=== PATIENT | female | born 1980 | race Caucasian/White ===

== ENCOUNTER 2018-01-05 10:46 | Emergency (ER) | payer BC ==
[2018-01-05] MEDS ORDERED: oxyCODONE/Acetamin 5/325 MG* TAB PO ONE (11:42)
[2018-01-05] MEDS ORDERED: Cyclobenzaprine TAB* 10 MG PO ONE (11:42)
[2018-01-05 12:03] LABS: Urine Appearance Clear; Urine Blood Negative (Negative); Urine Color Yellow; Urine Ketones Trace (Negative); Urine Protein 1+(30 mg/dL) (Negative); Urine Red Blood Cell Absent (Absent); Urine Specific Gravity 1.026 (1.010-1.030); Urine Urobilinogen Negative (Negative); Urine White Blood Cell Absent (Absent)
--- NOTE | 2018-01-05 12:28 | RAD ---
Indication: Back pain. CT of the lumbar spine was obtained in the axial plane. Sagittal and coronal reconstructed images were obtained. The vertebral bodies appear normal in height. No compression fracture is noted. There is disc space narrowing at L5-S1. Broad-based protrusion flattens the thecal sac. Facet arthropathy is noted. No definite nerve root impingement is noted. At L4-L5 there is degenerative disc disease with broad-based protrusion flattening the thecal sac. No central or foraminal stenosis is noted. At L3-L4, L2-L3 and L1-L2 no disc protrusion is identified. There is no fracture of the lumbar spine. IMPRESSION: At L4-L5 there is small to moderate broad-based protrusion flattening the thecal sac. No central or foraminal stenosis is noted. At L5-S1 degenerative disc disease with moderate size broad-based protrusion flattens the thecal sac. Facet arthropathy is noted. No central or foraminal stenosis is noted.
--- NOTE | 2018-01-05 13:01 | ED ---
Back Pain - HPI Summary HPI Summary: 37-year-old female presents with back pain for the past week. She denies any injury. She states she had back pain similar location many many years ago. She denies any loss of bowel or bladder. No saddle anesthesia. She denies any numbness or tingling to the legs. She denies any weakness. pain started on left side of back and radiates down left leg. She state has been developing muscle spasms that wrap around her abdomen. She is taking ibuprofen without relief. She has been seeing her chiropractor. No pain with urination. No fevers. patient was on neurotonin in the past which helped with the pain. - History of Current Complaint Chief Complaint: EDBackInjuryPain Stated Complaint: BACK PAIN Time Seen by Provider: 01/05/18 11:29 Hx Last Menstrual Period: 3 wks ago Pain Intensity: 7 - Allergies/Home Medications Allergies/Adverse Reactions: Allergies Allergy/AdvReac Type Severity Reaction Status Date / Time No Known Allergies Allergy Verified 07/08/13 17:38 Home Medications: Home Medications Ibuprofen TAB* [Motrin TAB* 600 MG] 600 mg PO Q8H PRN 01/05/18 [History Confirmed 01/05/18] Metoprolol Succinate XL TAB* [Toprol XL TAB*] 100 mg PO DAILY 01/05/18 [History Confirmed 01/05/18] Olmesartan Medoxomil [Benicar] 20 mg PO DAILY 01/05/18 [History Confirmed ] Sertraline* [Zoloft*] 200 mg PO DAILY 01/05/18 [History Confirmed 01/05/18] Valsartan TAB* [Diovan TAB*] 80 mg PO DAILY 01/05/18 [History Confirmed 01/05/18 ] PMH/Surg Hx/FS Hx/Imm Hx Endocrine/Hematology History: Denies: Hx Anticoagulant Therapy Cardiovascular History: Reports: Hx Hypertension - Surgical History Surgery Procedure, Year, and Place: gallbladder removed 2003. c-sections 2008 & 2010 - Immunization History Immunizations Up to Date: Yes Infectious Disease History: No Infectious Disease History: Denies: Traveled Outside the [place] in Last 30 Days - Family History Known Family History: Positive: Hypertension - Social History Alcohol Use: Occasionally Substance Use Type: Reports: None Smoking Status (MU): Never Smoked Tobacco Review of Systems Negative: Fever Negative: Chest Pain Negative: Shortness Of Breath Positive: Myalgia - back pain, left leg pain All Other Systems Reviewed And Are Negative: Yes Physical Exam Triage Information Reviewed: Yes Vital Signs On Initial Exam: Initial Vitals Temp Pulse Resp BP Pulse Ox 97.8 F 90 18 139/87 99 01/05/18 11:13 01/05/18 11:13 01/05/18 11:13 01/05/18 11:13 01/05/18 11:13 Vital Signs Reviewed: Yes Appearance: Positive: Well-Appearing Skin: Positive: Warm, Dry Head/Face: Positive: Normal Head/Face Inspection Eyes: Positive: Normal, Conjunctiva Clear ENT: Positive: Pharynx normal Respiratory/Lung Sounds: Positive: Clear to Auscultation, Breath Sounds Present Cardiovascular: Positive: Normal, RRR Musculoskeletal: Positive: Strength/ROM Intact - back, Other - tenderness left side of back Neurological: Positive: Normal Psychiatric: Positive: Normal Diagnostics - Vital Signs Vital Signs Temp Pulse Resp BP Pulse Ox 01/05/18 11:55 16 01/05/18 11:13 97.8 F 90 18 139/87 99 - Laboratory Lab Results: Lab Results 01/05/18 Range/Units 11:30 Urine Color Yellow Urine Appearance Clear Urine pH 5.0 (5-9) Ur Specific [place] 1.026 (1.010-1.030) Urine Protein 1+(30 mg/dl) A (Negative) Urine Ketones Trace A (Negative) Urine Blood Negative (Negative) Urine Nitrate Negative (Negative) Urine Bilirubin Negative (Negative) Urine Urobilinogen Negative (Negative) Ur Leukocyte Esterase Negative (Negative) Urine WBC (Auto) Absent (Absent) Urine RBC (Auto) Absent (Absent) Ur Squamous Epith Cells Present A (Absent) Urine Bacteria Absent (Absent) Urine Glucose Negative (Negative) Lab Statement: Any lab studies that have been ordered have been reviewed, and results considered in the medical decision making process. - Radiology back Xray Interpretation: Positive (See Comments) - IMPRESSION: At L4-L5 there is small to moderate broad-based protrusion flattening the thecal sac. No central or foraminal stenosis is noted. Radiology Interpretation Completed By: Radiologist Back Pain Course/Dx - Course Course Of Treatment: 37-year-old female presents with back pain for the past week. She denies any injury. She states she had back pain similar location many many years ago. She denies any loss of bowel or bladder. No saddle anesthesia. She denies any numbness or tingling to the legs. She denies any weakness. pain started on left side of back and radiates down left leg. She state has been developing muscle spasms that wrap around her abdomen. She is taking ibuprofen without relief. She has been seeing her chiropractor. No pain with urination. No fevers. patient was on neurotonin in the past which helped with the pain. On exam his tenderness over left side of back. pos straight leg raise. Positive yrn test. Neurovascularly intact. CT shows herniation L5-S1. Discuss with patient will be placed on Neurontin give muscle relaxer and steroid. Told to follow up primary. Patient and agrees with plan. - Diagnoses Differential Diagnosis/HQI/PQRI: Positive: Herniated Disc, Strain, Sprain Provider Diagnoses: Back pain Discharge - Sign-Out/Discharge Documenting (check all that apply): Patient Departure - Discharge Plan Condition: Good Disposition: HOME Prescriptions: Cyclobenzaprine TAB* [Flexeril 10 MG TAB*] 10 mg PO TID PRN #21 tab PRN Reason: Pain Gabapentin CAP(*) [Neurontin 100 mg CAP(*)] 200 mg PO TID #40 cap methylPREDNISolone [Medrol Dosepak 4 MG*] 4 mg PO .SEE PEE INSTRUCTION #1 packet Patient Education Materials: Back Pain (ED) Referrals: Mercedes Apple MD [Primary Care Provider] - Additional Instructions: Follow directions on package for Medrol pack Take muscle relaxers three times a day Take gabapentin one tablet for 2 days, then two tablets for 3 days, then three tablets thereafter Use ibuprofen or Tylenol for pain every 6 hours ice/heat area, move as much as possible Follow up with primary within 5 days Return to ED if develop any new or worsening symptoms - Billing Disposition and Condition Condition: GOOD Disposition: Home
[2018-01-05 13:37] VITALS: BP 129/66
== END 2018-01-05 12:30 | disposition home or self-care (01) ==
LOC: ED 10:46
DX: M54.9 Dorsalgia, unspecified (principal); M51.27 Other intervertebral disc displacement, lumbosacral region
CPT/HCPCS: 72131; 81003; 81015; 99282; A9270-GY